=== PATIENT | female | born 1975 | race Caucasian/White ===

== ENCOUNTER → 2017-11-18 19:47 | Outpatient (REF) | payer BC, SELFPAY ==
[2017-11-18 20:28] LABS: Abs Immature Grans 0.01 k/cumm (0.0-0.09); Absolute Basophil Count 0.02 k/cumm (0.0-0.2); Absolute Eosinophil Count 0.24 k/cumm (0.0-0.7); Absolute Lymphocyte Count 1.46 k/cumm (1.2-3.4); Absolute Monocyte Count 0.53 k/cumm (0.11-0.7); Absolute Neutrophil Count 2.61 k/cumm (1.2-6.7); Basophils % 0.4; Eosinophils % 4.9; HCT 39.5 % (36.0-46.0); HGB 12.8 g/dL (12.0-15.5); Immature Grans % 0.2; Mean Corp. HGB Concentration 32.4 g/dL (32.0-36.0); Mean Corpuscular Hemoglobin 28.4 pg (27.0-33.0); Mean Corpuscular Volume 87.6 fL (80-95); Mean Platelet Volume 11.5 fL (8.0-11.0); Monocytes % 10.9; Neutrophils % 53.6; Platelet Count 199 x1000/uL (130-400); RBC 4.51 m/cumm (4.00-5.20); RBC Distribution Width 13.5 % (11.7-14.6); White Blood Cell Count 4.87 k/cumm (4.4-10.8)
[2017-11-18 20:59] LABS: Cholesterol 216 mg/dL (50-200); HDL Cholesterol 69 mg/dL (40-60); LDL CHOLESTEROL 134 mg/dL (<100); Triglyceride 94 mg/dL (30-150)
== END ==
LOC: NCHCN 19:47
PROVIDERS: PCP Family Medicine; Visit Provider Family Medicine
DX: Z00.00 Encounter for general adult medical examination without abnormal findings (principal); J30.2 Other seasonal allergic rhinitis; H91.90 Unspecified hearing loss, unspecified ear
CPT/HCPCS: 80061; 83721; 85025

== ENCOUNTER 2018-08-08 16:33 | Outpatient (REF) | payer BC, SELFPAY ==
[2018-08-09 08:26] LABS: TSH (W/Ref FT4) 1.16 uIU/mL (0.358-3.74)
== END 2018-08-08 16:53 ==
LOC: NCHCN 16:33
PROVIDERS: PCP Family Medicine; Visit Provider Family Medicine
DX: E66.3 Overweight (principal)
CPT/HCPCS: 84443

== ENCOUNTER 2018-10-17 15:39 | Outpatient (CLI) | payer BC, SELFPAY ==
[2018-10-19 21:44] LABS: Almond IgE <0.35 kU/L; Baker's Yeast, IgE <0.35 kU/L; Banana, IgE <0.35 kU/L; Barley, IgE <0.35 kU/L; Beef IgE <0.35 kU/L; Black/White Pepper IgE <0.35 kU/L; Brazil Nut IgE <0.35 kU/L; Broccoli IgE <0.35 kU/L; Cacao/Cocoa, IgE <0.35 kU/L; Cashew IgE <0.35 kU/L; Cinnamon, IgE <0.35 kU/L; Corn-Food IgE <0.35 kU/L; Hazelnut-Food IgE <0.35 kU/L; Milk, IgE <0.35 kU/L; Onion, IgE <0.35 kU/L; Peanut IgE <0.10 kU/L; Pecan-Food IgE <0.35 kU/L; Soybean IgE <0.35 kU/L; Strawberry, IgE <0.35 kU/L; Walnut-Food IgE <0.35 kU/L; White Potato, IgE <0.35 kU/L
[2018-10-21 17:29] LABS: CLASS 0; Egg Whole IgE <0.10 kU/L (<0.35)
== END 2018-10-17 15:59 ==
PROVIDERS: PCP Family Medicine; Visit Provider Otolaryngology Otolaryngology/Facial Plastic Surgery
DX: L27.2 Dermatitis due to ingested food (principal); Z01.82 Encounter for allergy testing
CPT/HCPCS: 36415; 86003

== ENCOUNTER 2020-01-31 18:27 | Outpatient (REF) | payer BC, SELFPAY ==
[2020-02-06 01:36] LABS: Patient Race White; SARS-CoV-2 RNA Undetected (Undetected); SARS-CoV-2 Specimen Source Nasal
== END 2020-01-31 18:47 ==
LOC: NCHCN 18:27
PROVIDERS: PCP Family Medicine; Visit Provider Nurse Practitioner Community Health
DX: R05 Cough (principal)
CPT/HCPCS: U0003

== ENCOUNTER 2020-03-04 15:40 | Outpatient (CLI) | payer BC, SELFPAY ==
--- NOTE | 2020-03-04 15:15 | DI.RAD_ITS ---
EXAM: XR WRIST RT COMPLETE CLINICAL HISTORY: R thumb pain. TECHNIQUE: 2D digital imaging was performed. COMPARISON: No exams were available for comparison FINDINGS: There is no evidence of fracture nor dislocation. No abnormal soft tissue densities. No osseous les ions and. No radiopaque foreign body. IMPRESSION: No fracture evident. DATA REPOSITORY: RADIATION DOSE DELIVERED:
== END 2020-03-04 16:00 ==
PROVIDERS: PCP Family Medicine; Referring Provider Family Medicine; Visit Provider Physician Assistant
DX: M79.644 Pain in right finger(s) (principal)
CPT/HCPCS: 73110

== ENCOUNTER 2021-02-03 15:25 | Outpatient (CLI) | payer BC, SELFPAY ==
--- NOTE | 2021-02-03 14:45 | DI.RAD_ITS ---
Exam(s) XR KNEE RT 3V AP,LAT,KALYN EXAM: XR KNEE RT 3V AP,LAT,KALYN CLINICAL HISTORY: R knee pain. TECHNIQUE: 2D digital imaging was performed. COMPARISON: No exams were available for comparison FINDINGS: There is no evidence of fracture or joint effusion. No degenerative changes. No osseous lesions. B one density is normal. IMPRESSION: No significant radiographic findings on these three views of the right knee. DATA REPOSITORY: RADIATION DOSE DELIVERED:
== END 2021-02-03 15:26 | disposition home or self-care (01) ==
LOC: DIORS 15:26
PROVIDERS: PCP Family Medicine; Referring Provider Family Medicine; Visit Provider Physician Assistant
DX: M25.561 Pain in right knee (principal)
CPT/HCPCS: 73562

== ENCOUNTER 2021-02-20 01:18 | Outpatient (CLI) | payer BC, SELFPAY ==
--- NOTE | 2021-02-20 06:45 | DI.MRI_ITS ---
Exam(s) MR LOWER JOINT RT WO EXAM: MR LOWER JOINT RT WO CLINICAL HISTORY: ? meniscus tear,internal derangement rt knee, pain, m23.91 TECHNIQUE: Multiplanar multisequence MRI of the knee was performed. COMPARISON: CR XR KNEE RT 3V AP,LAT,KALYN from 02/03/2021 FINDINGS: EFFUSION: There is a small knee joint effusion. There is also a thin nonruptured Nevarez's cyst in the medial popliteal fossa which measures 4 cm craniocaudal length MARROW:There is subarticular signal abnormality seen in the anterior weight-bearing surface of the me dial femoral condyle which has appearance of degenerative subarticular cysts and osteochondral defect measuring approximately 1.3 cm wide by 1.1 cm AP by 0.5 cm deep. There is abnormal signal in the ov erlying cartilage over the medial condyle. Separate finding is a degenerative subarticular cyst on the tibial side of the proximal tibiofibular joint, this measuring 6 x 5 millimeters and without surrounding bone edema. There is no abnormal sig nal within the fibular side of this joint and there is no joint effusion at this level. PATELLOFEMORAL COMPARTMENT: The quadriceps tendon is intact. The patellar ligament is intact. There is mild thinning of the retropatellar cartilage over the mid-medial facet and there is a tiny f ocus of increased signal in the mid level of the cartilage with a corresponding tiny 2 millimeter foc us of increased signal within the posterior patella at this level. There is no prominent patellar ana maria ne edema. No evidence to suggest recent patellar dislocation, and there are no patellar retinacular tears. CRUCIATE LIGAMENTS: The anterior cruciate ligament is intact.The posterior cruciate ligament is intac t. MEDIAL COMPARTMENT/MEDIAL MENISCUS: There are no tears of the medial meniscus evident.. Above described cartilage and subarticular findings in the medial femoral condyle are noted. MEDIAL COLLATERAL LIGAMENT: Intact LATERAL COMPARTMENT/LATERAL MENISCUS: There is no evidence of lateral meniscal tear.There are no barron dral defects, osteochondral defects, subarticular marrow edema, nor osteophytes evident. ILIOTIBIAL BAND: Intact LATERAL COLLATERAL LIGAMENT COMPLEX: The fibular collateral ligament is intact. The biceps femoris t endon is intact.Popliteus muscle and tendon are intact. IMPRESSION: 1. There is articular cartilage abnormality in the medial femoral condyle anterior weight-bearing joao face with subarticular changes which exhibit findings of developing osteochondral defect at this leve l. There is also milder changes in the adjacent to retropatellar cartilage as well as the single tin y 1-2 millimeter focus of intra-articular signal abnormality in the posterior patella. 2. There are no meniscal tears. No cruciate ligament tears. No collateral ligament tears. 3. 5 millimeter degenerative subarticular cyst on the tibial side of the tibial fibular joint. No knott rrounding bone edema. No joint effusion at this level. 4. Small joint effusion. Also 4 cm nevarez cyst, nonruptured. DATA REPOSITORY:
== END 2021-02-20 01:38 ==
PROVIDERS: PCP Family Medicine; Visit Provider Student in an Organized Health Care Education/Training Program
DX: M25.561 Pain in right knee (principal); M71.22 Synovial cyst of popliteal space [Baker], left knee; M25.462 Effusion, left knee
CPT/HCPCS: 73721

== ENCOUNTER 2021-07-11 08:29 | Emergency (ER) | payer BC, SELFPAY ==
--- NOTE | 2021-07-11 08:30 | RT.EKG_ITS ---
APPROVED REPORT Exam: Resting ECG Reason for Exam: CHEST PAIN Patient Location: E HR:85 bpm ECG Measurements Heart Rate 85 AXIS UT 129 P 72 QRSd 89 QRS 83 QT 361 T 56 QTc 429 Conclusion Sinus rhythm...normal P axis, V-rate 60- 99. Sinus. Normal axis. No STEMI. I have reviewed and interpreted ECG and agree with software generated interpretation.
--- NOTE | 2021-07-11 09:11 | DI.CT_ITS ---
Exam(s) CT CHEST PE ABD PELVIS W EXAM: CT CHEST PE ABD PELVIS W CLINICAL HISTORY: Chest Pain, Nausea, RUQ Abd Pain. TECHNIQUE: Imaging Protocol: Axial CT angiography was performed with multi-slice acquisition and m ulti-planar and/or 3D reconstructions. CONTRAST MATERIAL: Intravenous: Omnipaque 350 Contrast volume:100 ml Oral: None COMPARISON: No exams were available for comparison FINDINGS: CHEST: PULMONARY ARTERIES: There are no intra-arterial filling defects to suggest the presence of acute pulm onary emboli. LUNGS: There is no evidence of pulmonary infarction. Confluent infiltrates.No pleural effusions. MEDIASTINUM: There is no hilar nor mediastinal adenopathy. Visualized thyroid unremarkable. CARDIAC: Heart size is normal. There is no pericardial effusion. There is no significant shift of t he interventricular septum.Caliber thoracic aorta is within normal limits and there is no evidence of aortic dissection. Incidentally noted is origin of the left vertebral artery off of the aortic arch . OSSEOUS: No significant osseous lesions.. ABDOMEN: There is no ascites. LIVER: There are no focal hepatic lesions nor dilatation of intrahepatic ducts. GALLBLADDER/BILIARY: No obvious gallbladder pathology. CBD is not dilated. PANCREAS: No evidence of pancreatic mass nor dilatation of the pancreatic duct. SPLEEN: Spleen is not enlarged. There are no intrasplenic lesions. Splenic and portal veins are mcdaniel nt. ADRENALS: There are no significant adrenal masses. KIDNEYS:No cysts evident. No calculi nor hydronephrosis. No solid renal masses. ABDOMINAL AORTA: Abdominal aorta is not enlarged. LYMPH NODES: There is no retroperitoneal or para-aortic adenopathy. ABDOMINAL WALL/GI: No evidence of significant anterior abdominal wall hernia. No bowel obstruction. PELVIS: LYMPH NODES: There is no intrapelvic nor inguinal adenopathy. GI: No evidence of appendicitis.No evidence of sigmoid diverticulitis. URINARY BLADDER: No calculi nor masses evident. However, there are few air bubbles noted in the blad brian. REPRODUCTIVE: Uterus is surgically absent. No abnormal adnexal masses. No free fluid. OSSEOUS: No significant osseous lesions. IMPRESSION: 1. No evidence of acute pulmonary emboli nor pulmonary infarction. 2. There are no pleural effusions. 3. No significant acute findings in the abdomen and pelvis. 4. No ascites. RADIATION DOSE DELIVERED: 1,294.65mGy.cm Total DLP DATA REPOSITORY: All CT scans at this facility are submitted to the National Radiology Data Registry (NRDR) Dose Index Registry (DIR) with the [employer] (A[employer]). RADIATION OPTIMIZATION: All CT scans at this facility use at least one of these dose optimization te chniques: automated exposure control; mA and/or kV adjustment per patient size (includes targeted exa ms where dose is matched to clinical indication); or iterative reconstruction.
--- NOTE | 2021-07-11 09:13 | W.ED.GENAD ---
Discharge Plan Disposition Patient Disposition: HOME Discharge Details Clinical Impression: Chest pain, Anxiety Primary Care Provider: Rg Sanchez ED Provider: Stacy Elam Home Meds and New Rx's Prescriptions: Continued halobetasol propionate 0.05 % ointment 1 applic topical .COMPLEX 0RF Rx Instructions: 1 applic topical twice weekly; naproxen sodium 550 mg tablet 550 mg PO BID PRN (Reason: pain) Qty: 60 5RF prochlorperazine maleate 5 mg tablet 5 mg PO Q8H PRN Qty: 90 1RF Rx Instructions: Take 1-2 tablets every 8 hours as needed for headaches or nausea Nurtec ODT 75 mg tablet,disintegrating 75 mg PO ONCE PRN (Reason: migraine headache) Qty: 15 5RF Rx Instructions: as a single dose; not to exceed 1 dose per 24 hrs OR 15 doses per 30 days topiramate 25 mg tablet 25 mg PO QHS Qty: 90 3RF Rx Instructions: along with 50mg Rx for total 75mg HS topiramate 50 mg tablet 50 mg PO HS Qty: 90 3RF Rx Instructions: Along with 25mg Rx for total 75mg HS estradiol 1 MG tablet 1 mg PO DAILY 0RF Zyrtec 10 MG capsule 10 mg PO DAILY 0RF Discharge Instructions Instructions: Chest Pain (ED), Anxiety (ED) Additional Instructions: At this time cardiac work-up CT chest abdomen pelvis within normal limits. Labs are largely within normal limits. There is no evidence of acute coronary syndrome. Discuss with your primary care provider about an outpatient stress test. Stand Alone Forms: Work Release Referrals: Rg Sanchez [Primary Care Provider] - 3 days Discharge Data Discharge Date/Time-TO BE ENTERED AT DEPARTURE: 07/11/21 13:10 Medical Decision Making Cardiac work-up ordered including CT chest, CT abdomen pelvis rule out cholecystitis and a lipase was also added on. Other differential diagnosis includes coronary artery disease, VA, NSTEMI, aortic dissection, costochondritis, bacterial illness. 0904: EKG was reviewed by Luciana Quiros DO ER attending, please see her official report review. No STEMI no old EKG available for review. Patient received Aspirin 324 MG PO upon initial presentation. Workup including two 3 hour serial troponins WNL. CT chest shows no abnormality. No evidence for PE, PNA or Aortic dissection. Patient was given GI cocktail prior to discharge and instructed on home care, follow up and strict return instructions by me. Patient and verbalize understanding and are in agreement with plan. Patient remained Hemodynamically stable throughout stay. Medical Records Medical records reviewed: Yes I reviewed the patient's medical records. Lab Data Lab results reviewed: Yes I reviewed the patient's lab results. Lab results narrative: Laboratory Tests Range/Units 07/11/21 07/11/21 07/11/21 08:50 09:32 09:32 WBC (4.4-10.8) 10^3/uL 4.67 RBC (3.93-5.22) 10^6/uL 4.55 Hgb (11.2-15.7) g/dL 13.1 Hct (36.0-46.0) % 40.9 MCV (80-95) fL 89.9 MCH (27.0-33.0) pg 28.8 MCHC (32.0-36.0) % 32.0 RDW (11.7-14.6) % 12.9 Plt Count (130-400) 10^3/uL 195 MPV (8.0-11.0) fL 11.4 H Immature Gran % 0.2 Neutrophils % 70.3 Lymphocytes % 18.6 Monocytes % 9.9 Eosinophils % 0.6 Basophils % 0.4 Nucleated RBC % % 0 Absolute Neutrophils (1.2-6.7) 10^3/uL 3.28 Absolute Lymphocytes (1.2-3.4) 10^3/uL 0.87 L Absolute Monocytes (0.1-0.8) 10^3/uL 0.46 Absolute Eosinophils (0.0-0.7) 10^3/uL 0.03 Absolute Basophils (0.0-0.2) 10^3/uL 0.02 PT (9.3-11.0) sec INR (0.9-1.1) D-Dimer Cancelled Sodium (136-145) mmol/L 140 Potassium (3.5-5.1) mmol/L 3.7 Chloride (98-107) mmol/L 107 Carbon Dioxide (21.0-32.0) mmol/L 25.5 Anion Gap (3-11) mmol/L 7.5 BUN (7-18) mg/dL 12 Creatinine (0.55-1.02) mg/dL 1.0 Estimated GFR/1.73 m2 (mL/min/1.73m2) 59.43 Glucose (74-106) mg/dL 110 H Calcium (8.5-10.1) mg/dL 9.1 Magnesium (1.8-2.4) mg/dL 2.2 Total Bilirubin (0.2-1.0) mg/dL 0.6 AST (15-37) U/L 19 ALT (14-59) U/L 22 Alkaline Phosphatase (46-116) U/L 46 Troponin I (<or=60) ng/L < 50 Total Protein (6.4-8.2) g/dL 7.3 Albumin (3.4-5.0) g/dL 4.1 Lipase (73-393) U/L Range/Units 07/11/21 07/11/21 07/11/21 09:32 09:32 12:10 WBC (4.4-10.8) 10^3/uL RBC (3.93-5.22) 10^6/uL Hgb (11.2-15.7) g/dL Hct (36.0-46.0) % MCV (80-95) fL MCH (27.0-33.0) pg MCHC (32.0-36.0) % RDW (11.7-14.6) % Plt Count (130-400) 10^3/uL MPV (8.0-11.0) fL Immature Gran % Neutrophils % Lymphocytes % Monocytes % Eosinophils % Basophils % Nucleated RBC % % Absolute Neutrophils (1.2-6.7) 10^3/uL Absolute Lymphocytes (1.2-3.4) 10^3/uL Absolute Monocytes (0.1-0.8) 10^3/uL Absolute Eosinophils (0.0-0.7) 10^3/uL Absolute Basophils (0.0-0.2) 10^3/uL PT (9.3-11.0) sec 11.1 H INR (0.9-1.1) 1.1 D-Dimer Sodium (136-145) mmol/L Potassium (3.5-5.1) mmol/L Chloride (98-107) mmol/L Carbon Dioxide (21.0-32.0) mmol/L Anion Gap (3-11) mmol/L BUN (7-18) mg/dL Creatinine (0.55-1.02) mg/dL Estimated GFR/1.73 m2 (mL/min/1.73m2) Glucose (74-106) mg/dL Calcium (8.5-10.1) mg/dL Magnesium (1.8-2.4) mg/dL Total Bilirubin (0.2-1.0) mg/dL AST (15-37) U/L ALT (14-59) U/L Alkaline Phosphatase (46-116) U/L Troponin I (<or=60) ng/L < 50 Total Protein (6.4-8.2) g/dL Albumin (3.4-5.0) g/dL Lipase (73-393) U/L 95 ECG Data Prior ECG tracings: not available for review HPI General Mode of arrival: ambulatory. Date/Time Provider Initiated Documentation: 07/11/21 08:40. Limitations to Documentation: no limitations. Information obtained by: patient, family, RN notes reviewed and old records reviewed. HPI Narrative: 46-year-old female presents to the ER with chief complaint of chest pain. Patient states that she felt funny last night woke up this morning around 6:30 AM took a deep breath felt a pop began to have more nausea and more pain. She is also reporting pain with deep breathing. She describes it as waves of nausea and dizziness. She also endorses chills. She does have a past medical history of migraine, surgical history includes hysterectomy, carpal tunnel surgery and left breast lumpectomy. She is a former smoker, alcohol okay special occasions only denies any drug use. She is alert and oriented, vital signs are stable. Related Data Home Medications Medication Instructions Recorded Confirmed cetirizine 10 mg capsule (Zyrtec) 10 mg PO DAILY 11/08/13 05/21/21 estradiol 1 mg tablet 1 mg PO DAILY 11/08/13 05/21/21 prochlorperazine maleate 5 mg 5 mg PO Q8H PRN #90 tab-cap 11/19/20 05/21/21 tablet halobetasol propionate 0.05 % 1 applic TOPICAL .COMPLEX 12/16/20 05/21/21 topical ointment rimegepant 75 mg disintegrating 75 mg PO ONCE PRN #15 tab 01/02/21 05/21/21 tablet (Nurtec ODT) topiramate 25 mg tablet 25 mg PO QHS #90 tab 03/24/21 05/21/21 topiramate 50 mg tablet 50 mg PO HS #90 tab 03/24/21 05/21/21 naproxen sodium 550 mg tablet 550 mg PO BID PRN #60 tab 05/21/21 05/21/21 Previous Rx's Medication Instructions Recorded prochlorperazine maleate 5 mg 5 mg PO Q8H PRN #90 tab-cap 11/19/20 tablet rimegepant 75 mg disintegrating 75 mg PO ONCE PRN #15 tab 01/02/21 [facility] topiramate 25 mg tablet 25 mg PO QHS #90 tab 03/24/21 topiramate 50 mg tablet 50 mg PO HS #90 tab 03/24/21 naproxen sodium 550 mg tablet 550 mg PO BID PRN #60 tab 05/21/21 Allergies Allergy/AdvReac Type Severity Reaction Status Date / Time codeine Allergy Severe Cardiac Unverified 05/21/21 09:35 Dysrythmia peanut Allergy Severe Anaphylaxsi Unverified 05/21/21 09:35 s erythromycin base Allergy Unknown Unverified 05/21/21 09:35 sumatriptan AdvReac Per pt. Verified 05/21/21 09:35 jaw /chest clenching. TREE NUTS Allergy Severe VERY BAD Uncoded 05/21/21 09:35 HEADACHE General Stated Complaint: Chest Pain BRAD: 2 Review of Systems All systems reviewed & are unremarkable except as noted in HPI and below ENT Ears, Nose, Mouth, and Throat: Reports dizziness Cardiovascular Cardiovascular: Reports as per HPI, Reports chest pain, Reports chest pain at rest and Reports lightheadedness Neurologic Neurologic: Reports as per HPI and Reports dizziness PFSH All Active Problems (Updated 07/11/21 @ 12:42 by Stacy Elam) Chest pain (Acute) Anxiety (Chronic) Tear of cartilage of right knee (Acute) Sprain of medial meniscus of right knee (Acute) Carpal tunnel syndrome, right (Acute) De Quervain's tenosynovitis, right (Acute) History of angioedema (Acute) Food allergic skin reaction (Acute) Migraine headache without aura (Chronic) Migraine aura without headache (Chronic) Ganglion, finger joint of right hand (Acute 03/01/17) Medical History Migraine Surgical History History of carpal tunnel surgery of right wrist History of hysterectomy for benign disease History of lumpectomy of left breast Family History Mother Hyperlipidemia Hypertension Social History Smoking/Tobacco Use Status: Former Tobacco Use Quit Date: 04/05/98 Tobacco: How many years used: 5 Smoking risk assessment performed?: Yes Alcohol Intake: current Alcohol Intake frequency: 0-2 drinks per day Alcohol type: beer and hard liquor Drug use: Never Substance use type: does not use Household members: spouse current occupation: TEACHER Current gender identity: female Exam Narrative Exam Narrative: Constitutional: Alert and oriented x3. Appears stated age. Normal body habitus. Head: Normocephalic, no trauma. Eyes: Pupils PERRL, Red reflex noted, EOM's intact. Eyelids symmetrical without lesions, discharge, or swelling. ENT: Bilateral TM's WNL, External ear normal to inspection, no mastoid TTP, swelling, or erythema, Nasal turbinates WNL, no nasal discharge. Normal dentition, Posterior pharynx WNL, no exudate. Chest: RRR, Normal S1, S2, distal pulses intact. Resp: Lungs clear to auscultation bilaterally, no wheezes, rales, or rhonchi. Abdomen: Soft, non-distended,Diminished bowel sounds all 4 quads. Tenderness to right upper quadrant. Musculoskeletal: Normal gait, 5/5 strength to all four extremities. Skin: No suspicious rashes or lesions. Capillary refill less than 2 sec. slightly pale. Neurologic: Cranial nerves II-XII intact. Alert and oriented x 3. Motor: No deficits noted. Sensory: Intact bilaterally all 4 extremities. Reflexes: DTR's intact bilaterally.. Hematologic/Lymphatic: No ecchymosis, no lymphadenopathy. Course Vital Signs Vital signs: Temperature Source Skin 07/11/21 08:55 Oxygen Delivery Method Room Air 07/11/21 08:55 Oxygen Flow Rate 0 07/11/21 08:55 Pain Level 5 07/11/21 08:55 Comment 07/11/21 08:55 Lab/Test Results Lab/Test Results: Laboratory Tests Range/Units 07/11/21 08:50 D-Dimer Cancelled Procedures EJ/Peripheral Line Arm R: Time Out Performed: No Skin Cleansed in Sterile Fashion: Yes Size (gauge): 18 IV Secured and Dressing Applied: Yes Patient Tolerated Procedure: well and no complications Additional Comments: 18-gauge right AC labs drawn. Sent to lab.
[2021-07-11] MEDS: Aspirin 81 MG CHEW 324 MG CH (09:38)
[2021-07-11 09:41] LABS: Abs Immature Grans 0.01 10^3/uL (0.0-0.06); Absolute Basophil Count 0.02 10^3/uL (0.0-0.2); Absolute Eosinophil Count 0.03 10^3/uL (0.0-0.7); Absolute Lymphocyte Count 0.87 10^3/uL (1.2-3.4); Absolute Monocyte Count 0.46 10^3/uL (0.1-0.8); Absolute Neutrophil Count 3.28 10^3/uL (1.2-6.7); Basophils % 0.4; Eosinophils % 0.6; HCT 40.9 % (36.0-46.0); HGB 13.1 g/dL (11.2-15.7); Immature Grans % 0.2; Lymphocytes % 18.6; MCH 28.8 pg (27.0-33.0); MCV 89.9 fL (80-95); MPV 11.4 fL (8.0-11.0); Monocytes % 9.9; Neutrophils % 70.3; Nucleated RBC 0 %; Platelet Count 195 10^3/uL (130-400); RBC 4.55 10^6/uL (3.93-5.22); RDW 12.9 % (11.7-14.6); RDW-SD 42.5 fL; WBC 4.67 10^3/uL (4.4-10.8)
[2021-07-11 09:53] LABS: INR 1.1 (0.9-1.1); Prothrombin Time 11.1 sec (9.3-11.0)
[2021-07-11 09:56] LABS: Lipase 95 U/L (73-393)
[2021-07-11] MEDS: Normal Saline 1,000 ML 1000 ML IV (09:57)
[2021-07-11 10:01] LABS: ALT 22 U/L (14-59); AST 19 U/L (15-37); Albumin 4.1 g/dL (3.4-5.0); Alkaline Phosphatase 46 U/L (46-116); Anion Gap 7.5 mmol/L (3-11); BUN 12 mg/dL (7-18); Bilirubin, Total 0.6 mg/dL (0.2-1.0); CO2 25.5 mmol/L (21.0-32.0); Calcium 9.1 mg/dL (8.5-10.1); Chloride 107 mmol/L (98-107); Estimated GFR 59.43 (mL/min/1.73m2); Glucose 110 mg/dL (74-106); Magnesium 2.2 mg/dL (1.8-2.4); Potassium 3.7 mmol/L (3.5-5.1); Sodium 140 mmol/L (136-145); Total Protein 7.3 g/dL (6.4-8.2); Troponin I < 50 ng/L (<or=60)
[2021-07-11 10:03] VITALS: BP 145/93; PULSE 71; PULSE 92; RESP 14; O2SAT 97
[2021-07-11 10:04] VITALS: PULSE 79; RESP 14; O2SAT 98
[2021-07-11 10:10] VITALS: PULSE 78; RESP 15; O2SAT 96
[2021-07-11] MEDS: Omnipaque 350 MG/ML 100 ML BTL IJ (10:10)
[2021-07-11] MEDS: Ondansetron 4 MG/2 ML VIAL IVP (10:31)
[2021-07-11 12:06] VITALS: BP 132/89; PULSE 79; RESP 16; O2SAT 98
[2021-07-11 12:38] LABS: Troponin I < 50 ng/L (<or=60)
== END 2021-07-11 13:10 | disposition home or self-care (01) ==
PROVIDERS: Emergency Provider Registered Nurse Emergency; PCP Family Medicine
DX: R07.9 Chest pain, unspecified (principal); F41.9 Anxiety disorder, unspecified
CPT/HCPCS: 36415; 71275; 74177; 80053; 83690; 93005; 96361; 96374; 99285; 83735; 84484; 85025; 85379; 85610; 93010; 99284; J2405; J3490

== ENCOUNTER → 2021-12-03 01:55 | Outpatient (CLI) | payer BC, SELFPAY ==
--- NOTE | 2021-12-03 16:20 | DI.MAMMO_ITS ---
Exam(s) MAMMO SCREENING EXAM: MAMMO SCREENING CLINICAL HISTORY: SCREENING, Z12.39. TECHNIQUE: Bilateral full field digital CC and MLO mammographic images were obtained with 3D tomosyn thesis and utilizing computer aided detection (CAD). COMPARISON: None FINDINGS: Fibroglandular tissue pattern is moderately dense, this somewhat decreasing the sensitivity mammogram for finding hidden underlying lesions. There are no obvious radiographic findings in the left breast. In the right breast on 3D MLO imaging there is an asymmetric density-possible nodule located posterio rly approximately 8 cm in from the nipple towards the upper outer quadrant, this measuring approximat nola 8 x 7 mm. On the CC view there is similar size asymmetric density located laterally, approximate ly 6 cm from the nipple, possibly a 2nd nodule. Spot compression CC and MLO views recommended. Also complete right breast ultrasound. There are no malignant-appearing microcalcification groups in this region or elsewhere in either [address]. There is no significant architectural distortion nor skin thickening-retraction. IMPRESSION: Moderately dense fibroglandular tissue in both breasts. Asymmetric densities-possible nodules in the right breast as described above. Spot compression CC and MLO views are recommended as well as compl ete right breast ultrasound. BI-RADS Category 0 - Assessment Incomplete: Need additional imaging evaluation Breast Density - Category C - Heterogeneously dense Breast density Category C or D implies that the patient has dense breast tissue. Dense breast tissue can make it harder to find cancer on a mammogram. Dense breast tissue is also associated with an incr eased risk of breast cancer. This information about the result of the mammogram report was provided to the patient to raise their awareness. Use this report when you speak with the patient about their risks for breast cancer, which includes their family history. At that time, you may recommend additional screening tests (Ultrasoun d or MRI) as these tests may add significant information. A negative radiographic report should not delay biopsy if a dominant or clinically suspicious mass is present. Up to ten percent of cancers are not identified on mammography. A negative report may reinforce clinical impression. Adenosis and dense breasts may obscure an underlying neoplasm. False positive reports average 6 to 10%. Patient will receive a letter notifying them of these results.
== END ==
PROVIDERS: PCP Family Medicine; Visit Provider Family Medicine
DX: Z12.31 Encounter for screening mammogram for malignant neoplasm of breast (principal); R92.8 Other abnormal and inconclusive findings on diagnostic imaging of breast
CPT/HCPCS: 77063; 77067

== ENCOUNTER → 2021-12-10 07:39 | Outpatient (CLI) | payer BC, SELFPAY ==
--- NOTE | 2021-12-10 | DI.US_ITS ---
Exam(s) MG MAMMO SCREEN CALL BACK UNI US BREAST RT COMPLETE EXAM: MG MAMMO SCREEN CALL BACK UNI and U/S breast RT complete CLINICAL HISTORY: F/U ABNL MAMMO, ASYMMETRIC DENSITY, POSSIBLE NODULES RT,. TECHNIQUE: Craniocaudal and mediolateral oblique Full Field Digital Mammography views of the right b reast with Computer Aided Diagnosis followed by Tomosynthesis and right breast ultrasound. COMPARISON: Comparison with prior examinations. FINDINGS: Mammography/Tomosynthesis: Masses/Architectural Distortion: None seen. No persistent nodule is seen on the additional views. Microcalcifictions: No suspicious pleomorphic-type are seen. Skin Thickening/Nipple Retraction: None. Complete right breast US: Echotexture: Normal appearance of the glandular tissue. Shadowing: No suspicious foci. Cyst: Multiple simple cysts are seen throughout the right breast. The largest measures 7 mm and is i n the retroareolar region of the right breast. Solid lesions: None seen. Ductal dilation: None. IMPRESSION: 1. No evidence of malignancy is noted. 2. Unless there is more urgent need, follow-up screening mammography is recommended, as per [employer] guidelines. 3. The findings were discussed with the patient on the date of the examination. BI-RADS Category 2 - Benign Findings Breast Density - Category C - Heterogeneously dense Breast density Category C or D implies that the patient has dense breast tissue. Dense breast tissue can make it harder to find cancer on a mammogram. Dense breast tissue is also associated with an incr eased risk of breast cancer. This information about the result of the mammogram report was provided to the patient to raise their awareness. Use this report when you speak with the patient about their risks for breast cancer, which includes their family history. At that time, you may recommend additional screening tests (Ultrasoun d or MRI) as these tests may add significant information. A negative radiographic report should not delay biopsy if a dominant or clinically suspicious mass is present. Up to ten percent of cancers are not identified on mammography. A negative report may reinforce clinical impression. Adenosis and dense breasts may obscure an underlying neoplasm. False positive reports average 6 to 10%. Patient will receive a letter notifying them of these results.
== END ==
PROVIDERS: PCP Family Medicine; Visit Provider Family Medicine
DX: Z12.31 Encounter for screening mammogram for malignant neoplasm of breast (principal); R92.8 Other abnormal and inconclusive findings on diagnostic imaging of breast
CPT/HCPCS: 76642; 77063; 77067

== ENCOUNTER 2022-02-06 20:44 | Outpatient (REF) | payer BC, SELFPAY ==
[2022-02-06 21:31] LABS: Abs Immature Grans 0.01 10^3/uL (0.0-0.06); Absolute Basophil Count 0.03 10^3/uL (0.0-0.2); Absolute Eosinophil Count 0.11 10^3/uL (0.0-0.7); Absolute Lymphocyte Count 1.85 10^3/uL (1.2-3.4); Absolute Monocyte Count 0.53 10^3/uL (0.1-0.8); Absolute Neutrophil Count 2.81 10^3/uL (1.2-6.7); Basophils % 0.6; Eosinophils % 2.1; HCT 37.4 % (36.0-46.0); HGB 12.4 g/dL (11.2-15.7); Immature Grans % 0.2; Lymphocytes % 34.6; MCH 29.8 pg (27.0-33.0); MCHC 33.2 % (32.0-36.0); MCV 90 fL (80-95); MPV 11.8 fL (8.0-11.0); Monocytes % 9.9; Neutrophils % 52.6; Platelet Count 224 10^3/uL (130-400); RBC 4.16 10^6/uL (3.93-5.22); RDW 12.4 % (11.7-14.6); RDW-SD 40.7 fL; WBC 5.34 10^3/uL (4.4-10.8)
[2022-02-06 22:01] LABS: ALT 21 U/L (14-59); AST 21 U/L (15-37); Alkaline Phosphatase 72 U/L (46-116); BUN 17 mg/dL (7-18); Bilirubin, Total 0.3 mg/dL (0.2-1.0); Calcium 9.1 mg/dL (8.5-10.1); Chloride 110 mmol/L (98-107); Estimated GFR 69.93 (mL/min/1.73m2); Glucose 90 mg/dL (74-106); Potassium 3.8 mmol/L (3.5-5.1); Sodium 144 mmol/L (136-145); TSH (W/Ref FT4) 1.64 uIU/mL (0.36-3.74); Total Protein 7.2 g/dL (6.4-8.2)
== END 2022-02-06 20:45 | disposition home or self-care (01) ==
LOC: NCHCN 20:44
PROVIDERS: PCP Family Medicine; Visit Provider Family Medicine
DX: G24.5 Blepharospasm (principal); R61 Generalized hyperhidrosis
CPT/HCPCS: 80053; 84443; 85025

== ENCOUNTER 2022-09-24 01:23 | Outpatient (CLI) | payer BC, SELFPAY ==
--- NOTE | 2022-09-24 | DI.US_ITS ---
Exam(s) US BREAST LT COMPLETE MG MAMMO DIAGNOSTIC BI EXAM: MG MAMMO DIAGNOSTIC BI CLINICAL HISTORY: MASTALGIA N64.4 INCREASE TENDER BREAST L>R. TECHNIQUE: Spot compression digital Mammography views of the bothbreasts with Tomosynthesis followe d by left breast ultrasound. COMPARISON: MG MG MAMMO SCREENING from 12/03/2021 MG MG MAMMO SCREEN CALL BACK UNI from 12/10/2021 US US BREAST RT COMPLETE from 12/10/2021 US US BREAST LT COMPLETE from 09/24/2022 FINDINGS: RIGHT BREAST: Mammography/Tomosynthesis: Masses/Architectural Distortion: None seen. Microcalcifictions: No suspicious pleomorphic-type are seen. Skin Thickening/Nipple Retraction: None. LEFT BREAST: Mammography/Tomosynthesis: Masses/Architectural Distortion: None seen. Microcalcifictions: No suspicious pleomorphic-type are seen. Skin Thickening/Nipple Retraction: None. Left breast ultrasound: Echotexture: Normal appearance of the glandular tissue. Shadowing: No suspicious foci. Cyst: 8 x 3 x 6 millimeters simple cyst 2 o'clock position 1 cm from the nipple Solid lesions: None seen. Ductal dilation: None. IMPRESSION: 1. Right breast: No evidence of malignancy is noted. 2. Left breast: No evidence of malignancy is noted. 3. Unless there is more urgent need, follow-up screening mammography is recommended, as per [employer] guidelines. 4. The findings were discussed with the patient on the date of the examination. BI-RADS Category 2 - Benign Findings Breast Density - Category C - Heterogeneously dense A mammogram that demonstrates density of C or D indicates the patient's breast tissue is dense. Dense breast tissue is very common and is not abnormal, but dense breast tissue can make it harder to find cancer on a mammogram. Also, dense breast tissue may increase their breast cancer risk. This informa tion about the result of the mammogram report was provided to the patient to raise their awareness. U se this report when you speak with the patient about their risks for breast cancer, which includes th eir family history. At that time, you may recommend for more screening tests (Ultrasound or MRI) as t hey might be useful based on their risk. A negative radiographic report should not delay biopsy if a dominant or clinically suspicious mass is present. Up to ten percent of cancers are not identified on mammography. A negative report may reinforce clinical impression. Adenosis and dense breasts may obscure an underlying neoplasm. False positive reports average 6 to 10%. Patient will receive a letter notifying them of these results.
== END 2022-09-24 01:43 ==
LOC: DI 01:23
PROVIDERS: PCP Family Medicine; Visit Provider Obstetrics & Gynecology
DX: N64.4 Mastodynia (principal); Z12.31 Encounter for screening mammogram for malignant neoplasm of breast
CPT/HCPCS: 76642; 77062; 77066; G0279

== ENCOUNTER 2023-06-22 18:15 | Outpatient (REF) | payer BC, SELFPAY ==
[2023-06-22 21:37] LABS: Absolute Basophil Count 0.03 10^3/uL (0.0-0.2); Absolute Eosinophil Count 0.22 10^3/uL (0.0-0.7); Absolute Lymphocyte Count 1.43 10^3/uL (1.2-3.4); Absolute Monocyte Count 0.43 10^3/uL (0.1-0.8); Absolute Neutrophil Count 2.13 10^3/uL (1.2-6.7); Basophils % 0.7; Eosinophils % 5.2; HCT 38.7 % (36.0-46.0); HGB 12.8 g/dL (11.2-15.7); Lymphocytes % 33.7; MCH 29.6 pg (27.0-33.0); MCHC 33.1 % (32.0-36.0); MCV 89 fL (80-95); MPV 11.6 fL (8.0-11.0); Monocytes % 10.1; Neutrophils % 50.3; Platelet Count 233 10^3/uL (130-400); RBC 4.33 10^6/uL (3.93-5.22); RDW 12.7 % (11.7-14.6); WBC 4.24 10^3/uL (4.4-10.8)
[2023-06-22 21:59] LABS: ALT 26 U/L (14-59); AST 19 U/L (15-37); Albumin 4.1 g/dL (3.4-5.0); Alkaline Phosphatase 58 U/L (46-116); Anion Gap 9.5 mmol/L (3-11); BUN 13 mg/dL (7-18); Bilirubin, Total 0.4 mg/dL (0.2-1.0); CO2 28.5 mmol/L (21.0-32.0); CREATININE 0.9 mg/dL (0.55-1.02); Calcium 9.5 mg/dL (8.5-10.1); Chloride 107 mmol/L (98-107); Estimated GFR 78.86 (mL/min/1.73m2); Glucose 90 mg/dL (74-106); Potassium 3.8 mmol/L (3.5-5.1); Sodium 145 mmol/L (136-145); TSH (W/Ref FT4) 1.22 uIU/mL (0.36-3.74); Total Protein 7.5 g/dL (6.4-8.2)
[2023-06-22 22:42] LABS: Hemoglobin A1C 5.4 % (<5.7)
== END 2023-06-22 18:16 | disposition home or self-care (01) ==
LOC: NCHCN 18:15
PROVIDERS: PCP Family Medicine; Visit Provider Family Medicine
DX: Z00.00 Encounter for general adult medical examination without abnormal findings (principal)
CPT/HCPCS: 80053; 83036; 84443; 85025

== ENCOUNTER 2024-06-22 19:46 | Outpatient (REF) | payer BC, SELFPAY ==
[2024-06-22 21:12] LABS: HCT 37.4 % (36.0-46.0); HGB 12.7 g/dL (11.2-15.7); MCH 29.4 pg (27.0-33.0); MCV 87 fL (80-95); Platelet Count 285 10^3/uL (130-400); RBC 4.32 10^6/uL (3.93-5.22); RDW 12.6 % (11.7-14.6); RDW-SD 39.8 fL; WBC 4.75 10^3/uL (4.4-10.8)
[2024-06-22 21:36] LABS: ALT 35 U/L (14-59); AST 26 U/L (15-37); Albumin 3.9 g/dL (3.4-5.0); Alkaline Phosphatase 76 U/L (46-116); Anion Gap 6.8 mmol/L (3-11); BUN 17 mg/dL (7-18); Bilirubin, Total 0.3 mg/dL (0.2-1.0); CO2 27.2 mmol/L (21.0-32.0); Calcium 9.3 mg/dL (8.5-10.1); Chloride 108 mmol/L (98-107); Estimated GFR 69.06 (mL/min/1.73m2); Glucose 99 mg/dL (74-106); Potassium 3.9 mmol/L (3.5-5.1); Sodium 142 mmol/L (136-145); TSH (W/Ref FT4) 1.37 uIU/mL (0.36-3.74); Total Protein 7.4 g/dL (6.4-8.2)
[2024-06-22 22:12] LABS: Hemoglobin A1C 5.8 % (<5.7)
[2024-06-22 22:15] LABS: Calculated LDL 105 mg/dL (<100); Cholesterol 186 mg/dL (<200); HDL Cholesterol 59 mg/dL (>or=50); Triglyceride 113 mg/dL (<150); Vitamin B12 565 pg/mL (193-986); Vitamin D 25 Total 29 ng/mL (30-100)
== END 2024-06-22 19:47 | disposition home or self-care (01) ==
LOC: NCHCN 19:46
PROVIDERS: PCP Family Medicine; Visit Provider Family Medicine
DX: Z00.00 Encounter for general adult medical examination without abnormal findings (principal)
CPT/HCPCS: 80053; 80061; 82306; 85027; 82607; 83036; 84443

== ENCOUNTER 2024-08-14 02:25 | Outpatient (CLI) | payer BC, SELFPAY ==
--- NOTE | 2024-08-14 07:46 | DI.MAMMO_ITS ---
Exam(s) MAMMO SCREENING EXAM: MAMMO SCREENING CLINICAL HISTORY: Screening, Z12.31 TECHNIQUE: Bilateral full field digital CC and MLO mammographic images were obtained with 3D tomosyn thesis and utilizing computer aided detection (CAD). COMPARISON: Available for comparison. FINDINGS: Masses/Architectural Distortion: No suspicious masses or areas of architectural distortion are presen t. Microcalcifications: No suspicious pleomorphic-type are seen. Skin Thickening/Nipple Retraction: None. IMPRESSION: 1. No significant interval change with no specific features of malignancy noted. 2. Unless there is more urgent need, screening mammography is recommended, as per [employer] guidelines. BI-RADS Category 1 - Negative Breast Density - Category C - The breast are heterogeneously dense, which may obscure small masses. Breast density category C or D implies that the patient has dense breast tissue. Dense breast tissue is very common and is not abnormal but dense breast tissue can make it harder to find cancer on a ma mmogram. Also, dense breast tissue may increase their breast cancer risk. This information about the result of the mammogram report was provided to the patient to raise their awareness. Use this report when you speak with the patient about their risks for breast cancer, which includes their family hist ory. At that time, you may recommend for more screening tests (Ultrasound or MRI) as they might be us eful based on their risk. A negative radiographic report should not delay biopsy if a dominant or clinically suspicious mass is present. Up to ten percent of cancers are not identified on mammography. A negative report may reinforce clinical impression. Adenosis and dense breasts may obscure an underlying neoplasm. False positive reports average 6 to 10%. Patient will receive a letter notifying them of these results.
== END 2024-08-14 02:45 ==
PROVIDERS: PCP Family Medicine; Visit Provider Family Medicine
DX: Z12.31 Encounter for screening mammogram for malignant neoplasm of breast (principal); R92.333 Mammographic heterogeneous density, bilateral breasts
CPT/HCPCS: 77063; 77067

== ENCOUNTER 2024-11-03 19:40 | Outpatient (REF) | payer BC, SELFPAY ==
[2024-11-03 21:16] LABS: Hemoglobin A1C 5.4 % (<5.7)
== END 2024-11-03 19:41 | disposition home or self-care (01) ==
LOC: LBN 19:40
PROVIDERS: PCP Family Medicine; Visit Provider Internal Medicine
DX: K29.80 Duodenitis without bleeding (principal); R73.9 Hyperglycemia, unspecified
CPT/HCPCS: 82784; 83036

== ENCOUNTER 2024-11-22 10:14 | Outpatient (CLI) | payer BC, SELFPAY ==
--- NOTE | 2024-11-22 08:15 | DI.RAD_ITS ---
Exam(s) XR KNEE RT 2V AP,LAT EXAM: XR KNEE RT 2V AP,LAT CLINICAL HISTORY: F/U RIGHT KNEE PAIN. TECHNIQUE: 2D digital imaging was performed. Three views. COMPARISON: CR XR KNEE RT 3V AP,LAT,KALYN from 02/03/2021 FINDINGS: BONES: No acute fracture is present. No bony destructive lesion is seen. Small enthesophyte at quadriceps insertion JOINTS: The knee is normally aligned. No joint effusion is seen. SOFT TISSUE: Normal. IMPRESSION: No acute abnormality. DATA REPOSITORY: RADIATION DOSE DELIVERED:
== END 2024-11-22 10:15 | disposition home or self-care (01) ==
LOC: DIORS 10:14
PROVIDERS: PCP Family Medicine; Visit Provider Student in an Organized Health Care Education/Training Program
DX: M23.203 Derangement of unspecified medial meniscus due to old tear or injury, right knee (principal); S83.8X1A Sprain of other specified parts of right knee, initial encounter
CPT/HCPCS: 73560